=== PATIENT | male | born 1970 | race Caucasian/White ===

== ENCOUNTER 2018-07-17 19:47 | Inpatient (IN) | payer SELFPAY ==
[~2018-07-17] VITALS: Ht 185.4 cm; Wt 99.3 kg
[2018-07-17 19:55] VITALS: BP_SYST 159
[2018-07-17] MEDS ORDERED: NACL 0.9% 1,000 ML IV ONE (20:01)
[2018-07-17] MEDS ORDERED: NITROGLYCERIN 0.4 MG TAB.SUBL SL ONE (20:15)
[2018-07-17] MEDS ORDERED: MORPHINE 4 MG/ML INJ. SYRINGE IVP ONE (20:15)
[2018-07-17] MEDS ORDERED: ASPIRIN 81 MG TAB.CHEW PO ONE (20:15)
[2018-07-17] MEDS ORDERED: CLOPIDOGREL BISULFATE 75 MG TABLET PO ONE (20:15)
[2018-07-17 20:31] LABS: BASOPHILS # (AUTO) 0.1 K/uL (0.0-0.2); BASOPHILS % (AUTO) 1.1 % (0.0-2.0); EOSINOPHILS # (AUTO) 0.1 K/uL (0.0-0.4); EOSINOPHILS % (AUTO) 0.9 % (0.0-4.0); HEMATOCRIT 49.8 % (36-54); HEMOGLOBIN 16.9 g/dL (14.0-18.0); LYMPHOCYTES # (AUTO) 2.1 K/uL (1.0-5.5); LYMPHOCYTES % (AUTO) 26.6 % (20.5-51.5); MEAN CORPUSCULAR HEMOGLOBIN 31 pg (27-31); MEAN CORPUSCULAR HGB CONC 34 % (32-36); MEAN CORPUSCULAR VOLUME 92 fL (79.0-98.0); MONOCYTES # (AUTO) 1.1 K/uL (0.0-1.0); MONOCYTES % (AUTO) 13.5 % (1.7-9.3); NEUTROPHILS # (AUTO) 4.4 K/uL (1.8-7.7); NEUTROPHILS % (AUTO) 57.9 % (40.0-70.0); PLATELET COUNT (AUTO) 83 K/uL (130-430); RED CELL DISTRIBUTION WIDTH 12.1 % (9.0-15.0); WHITE BLOOD COUNT (AUTO) 7.8 K/uL (4.8-10.8)
[2018-07-17 20:36] LABS: CALCIUM 8.5 mg/dL (8.4-11.0); CREATININE 1.24 mg/dL (0.55-1.30)
[2018-07-17 20:38] LABS: INR 0.9 (0.80-1.20); POTASSIUM 2.9 mmol/L (3.5-5.1); PROTHROMBIN TIME 9.5 SECS (9.5-12.5)
[2018-07-17 20:42] LABS: ALBUMIN 3.7 g/dL (3.4-4.8); TOTAL BILIRUBIN 1.3 mg/dL (0.0-1.0)
[2018-07-17 21:06] LABS: BILIRUBIN,URINE NEGATIVE (NEGATIVE); BLOOD, URINE NEGATIVE (NEGATIVE); CLARITY/URINE CLEAR (CLEAR); COLOR,URINE YELLOW (YELLOW); GLUCOSE,URINE NEGATIVE (NEGATIVE); KETONES,URINE NEGATIVE (NEGATIVE); LEUKOCYTE ESTERASE ,URINE NEGATIVE (NEGATIVE); NITRITE, URINE NEGATIVE (NEGATIVE); PH,URINE 5.5 (5.0-8.0); PROTEIN URINE NEGATIVE (NEGATIVE); UROBILINOGEN,URINE 0.2 (0.2-1.0)
[2018-07-17] MEDS ORDERED: KCL 40 mEq in 100 mL (PREMIX) 100 ML IV ONE (21:15)
[2018-07-17 21:20] LABS: BARBITURATE, URINE NEGATIVE (NEG <=200); BENZODIAZEPINE, URINE NEGATIVE (NEG <=150); CANNABINOID, URINE NEGATIVE (NEG <=50); COCAINE, URINE NEGATIVE (NEG <=150); METHAMPHETAMINES SCREEN,URINE NEGATIVE (NEG <=500); OPIATE, URINE POSITIVE (NEG <=100); PHENCYCLIDINE SCREEN,URINE NEGATIVE (NEG <=25); UR TRICYCLIC ANTIDEPRESSANTS NEGATIVE (NEG <=300); URINE AMPHETAMINE NEGATIVE (NEG <=500); URINE METHADONE NEGATIVE (NEG <=200); URINE OXYCODONE SCREEN NEGATIVE (NEG <=100); URINE PROPOXYPHENE SCREEN NEGATIVE (NEG <=300)
[2018-07-17] MEDS ORDERED: KCL 20 mEq in 100 mL (PREMIX) 200 ML IV ONE (21:24)
[2018-07-17] MEDS ORDERED: KCL 20 mEq in 100 mL (PREMIX) 100 ML IV ONE (21:30)
[2018-07-17] MEDS ORDERED: ATEN50TA PO (22:11)
[2018-07-17] MEDS ORDERED: HYDR12.55 PO (22:11)
[2018-07-17 22:43] VITALS: BP_SYST 148
[2018-07-18 00:18] VITALS: BP_SYST 121
[2018-07-18 08:00] VITALS: BP_SYST 175
[2018-07-18] MEDS ORDERED: LORazepam 2 MG/ML VIAL IVP ONE (09:45)
[2018-07-18] MEDS ORDERED: chlordiazePOXIDE HCL 25 MG CAPSULE PO ONE (10:00)
[2018-07-18] MEDS ORDERED: THIAMINE HCL 100 MG TABLET PO ONE (10:00)
[2018-07-18] MEDS ORDERED: LORazepam 2 MG/ML VIAL IM PRN (10:00)
[2018-07-18] MEDS ORDERED: HYDROCHLOROTHIAZIDE 12.5 MG CAPSULE (HCTZ) PO ONE (10:00)
[2018-07-18] MEDS ORDERED: ATENOLOL 50 MG TABLET (TENORMIN) PO ONE (10:00)
[2018-07-18 10:51] LABS: CALCIUM 8.1 mg/dL (8.4-11.0); CREATININE 0.94 mg/dL (0.55-1.30); POTASSIUM 3.1 mmol/L (3.5-5.1)
[2018-07-18] MEDS ORDERED: POTASSIUM CHLORIDE 20 MEQ TAB.PRT.SR PO ONE (13:45)
[2018-07-18 14:04] VITALS: BP_SYST 163
[2018-07-18] MEDS ORDERED: amLODIPine BESYLATE 5 MG TABLET ONE (14:23)
[2018-07-18] MEDS ORDERED: amLODIPine BESYLATE 5 MG TABLET PO ONE (14:30)
[2018-07-18] MEDS ORDERED: chlordiazePOXIDE HCL 25 MG CAPSULE PO SCH (15:00)
[2018-07-18] MEDS ORDERED: ATENOLOL 50 MG TABLET (TENORMIN) PO SCH (21:00)
[2018-07-19] MEDS ORDERED: HYDROCHLOROTHIAZIDE 12.5 MG CAPSULE (HCTZ) PO SCH (09:00)
[2018-07-19] MEDS ORDERED: THIAMINE HCL 100 MG TABLET PO SCH (09:00)
[2018-07-19] MEDS ORDERED: amLODIPine BESYLATE 5 MG TABLET PO SCH (09:00)
== END 2018-07-18 14:50 | disposition home or self-care (01) | DRG 313 ==
LOC: SED 19:47 → STU 22:24
PROVIDERS: ADMIT Internal Medicine Hospice and Palliative Medicine; ATTEND Internal Medicine Hospice and Palliative Medicine
DX: R07.89 Other chest pain (principal); K70.30 Alcoholic cirrhosis of liver without ascites; D69.6 Thrombocytopenia, unspecified; E87.5 Hyperkalemia; I10 Essential (primary) hypertension; F10.10 Alcohol abuse, uncomplicated; Z79.899 Other long term (current) drug therapy
CPT/HCPCS: 36415; 71045; 80048; 80053; 80307; 81003; 82150-TC; 82550-TC; 83690-TC; 84484; 85025; 85610-TC; 85730-TC; 93005; 96361; 96365; 96368; 96375; 99285; J2060; J2270; J3480; J7030

== ENCOUNTER 2022-11-08 01:01 | Inpatient (IN) | payer OTHER ==
[~2022-11-08] VITALS: Ht 190.5 cm; Wt 113.9 kg
[~2022-11-08 01:01] MED LIST: ACAM333T9 PO; AMLO5TAB4 PO; ARIP5TAB10 PO; ATEN50TA PO; BUPR-120 PO; GABA-529 PO; HCT25 PO; LIB25 PO; TRAZ-251 PO
[2022-11-08 01:13] VITALS: BP_SYST 97
--- NOTE | 2022-11-08 01:13 | NUR ---
Patient placed in ER bed 4.
--- NOTE | 2022-11-08 01:26 | NUR ---
Dr. Purdy at bedside examining the patient.
--- NOTE | 2022-11-08 01:30 | NUR ---
Titrated O2 down to 9LPM as ordered by Dr. Purdy.
[2022-11-08 02:31] LABS: CALCIUM 8.2 mg/dL (8.4-11.0); CREATININE 1.01 mg/dL (0.55-1.30)
[2022-11-08 02:32] LABS: BASOPHILS % (AUTO) 0.3 % (0.0-2.0); EOSINOPHILS # (AUTO) 0.1 K/uL (0.0-0.4); EOSINOPHILS % (AUTO) 1.1 % (0.0-4.0); HEMATOCRIT 42.7 % (36-54); HEMOGLOBIN 14.9 g/dL (14.0-18.0); LYMPHOCYTES # (AUTO) 2.3 K/uL (1.0-5.5); LYMPHOCYTES % (AUTO) 24.6 % (20.5-51.5); MEAN CORPUSCULAR HEMOGLOBIN 32 pg (27-31); MEAN CORPUSCULAR HGB CONC 35 % (32-36); MEAN CORPUSCULAR VOLUME 92 fL (79.0-98.0); MONOCYTES # (AUTO) 0.8 K/uL (0.0-1.0); MONOCYTES % (AUTO) 8.9 % (1.7-9.3); NEUTROPHILS # (AUTO) 6.1 K/uL (1.8-7.7); NEUTROPHILS % (AUTO) 65.1 % (40.0-70.0); PLATELET COUNT (AUTO) 178 K/uL (130-430); RED BLOOD CELL COUNT(AUTO) 4.62 MIL/uL (4.2-6.2); RED CELL DISTRIBUTION WIDTH 16.4 % (9.0-15.0); WHITE BLOOD COUNT (AUTO) 9.3 K/uL (4.8-10.8)
[2022-11-08 02:33] LABS: INR 1.4 (0.80-1.20)
--- NOTE | 2022-11-08 02:46 | NUR ---
Critical lab reported: Potassium 2.1 Reported to MD Purdy
[2022-11-08 02:47] LABS: ALBUMIN 1.9 g/dL (3.4-4.8)
[2022-11-08 02:50] LABS: TOTAL BILIRUBIN 35.5 mg/dL (0.0-1.0)
[2022-11-08] MEDS ORDERED: POTASSIUM CHLORIDE 20 MEQ TAB.PRT.SR PO ONE (03:00)
[2022-11-08] MEDS ORDERED: KCL 20 mEq in 100 mL (PREMIX) 100 ML IV ONE (03:00)
--- NOTE | 2022-11-08 06:09 | NUR ---
Admit bed requested Patient will be admitted to care of . Admitted to MED SURG unit. Diagnosis : LIVER FAILURE, ETOH CIRRHOSIS, ELEVATED BILIRUBIN Inpatient (Yes or No) Y Observation (Yes or No) N Orientation concerns or request close to nursing station (Yes or No) N Covid Status : PENDING From Home (Yes or if No enter name of facility) Y
[2022-11-08] MEDS ORDERED: FOLIC ACID 1 MG, THIAMINE HCL 100 MG, MAGNESIUM SULFATE 1 GM, MVI 10 ML in NACL 0.9% 1,... IV SCH (06:15)
--- NOTE | 2022-11-08 10:52 | NUR ---
CONSULTATION PAGED7 REASON FOR CONSULTATION:HYPERBILIRUBINEMIA WAS CONSULT CALLED?Y PERSON WHO WAS NOTIFIED:RANJIT CONSULTING PHYSICIAN:ERNESTO MAGAÑA ([employer] HOME AGENT) CUSTOMER SERVICE CONSULTANT SPECIALTY:GI CUSTOMER SERVICE CONSULTANT PHONE NUMBER:[phone] REQUESTING PHYSICIAN:SILVIO JULIAN
[2022-11-08] MEDS ORDERED: FOLIC ACID 1 MG, MVI 10 ML in NACL 0.9% 1,000 ML IV SCH (11:00)
[2022-11-08] MEDS ORDERED: prednisoLONE 15 MG/5 ML UDC PO ONE (11:00)
[2022-11-08 12:07] VITALS: BP_SYST 101
[2022-11-08 12:34] LABS: CALCIUM 8.5 mg/dL (8.4-11.0); CREATININE 1.12 mg/dL (0.55-1.30)
[2022-11-08] MEDS: FOLIC ACID 1 MG, MVI 10 ML in NACL 0.9% 1,000 ML IV SCH (13:49)
[2022-11-08] MEDS: THIAMINE HCL 100 MG, MAGNESIUM SULFATE 1 GM in NS 100 ML IV SCH (13:51)
[2022-11-08] MEDS ORDERED: POTASSIUM CHLORIDE 40 MEQ in NS 250 ML IV ONE (15:00)
[2022-11-08 16:24] VITALS: BP_SYST 112
--- NOTE | 2022-11-08 19:30 | NUR ---
PT IS RESTING, WITH NASAL CANULA 2 L, SATING ON 98 PERCENT. URINE BAG ATTACHED WITH YELLOW COLOR URINE. PT ABD IS DISTENDED. PT ABLE TO SPEAK AND FOLLOW THE COMMAND.
--- NOTE | 2022-11-08 19:35 | NUR ---
PT RIGHT AC IV LINE IS DISLODGED AND ATTEMPT TO FLUSH BUT UNSUCCESSFUL. PT IS TOLERATED.
[2022-11-08 20:00] VITALS: BP_SYST 103
--- NOTE | 2022-11-08 20:30 | NUR ---
THE NEW IV WAS INSERTED ON THE LEFT AC 18 GAUGE. PT TOLERATED WELL. BED LOWERED
--- NOTE | 2022-11-08 21:00 | NUR ---
PT NEEDED SOME CARE SINCE HE URINATED. EAR FLAP BINDER CLEANED THE PT. THE URINE BAG FELL AND HAS BEEN REATTACHED.
[2022-11-08] MEDS: KCL 20 mEq in D5/0.45NS 1000mL 1,000 ML IV SCH (22:06)
--- NOTE | 2022-11-08 23:50 | NUR ---
PT IS TRYING TO GET OFF THE BED. RESET THE ALARM.
[2022-11-09] VITALS: BP_SYST 97
--- NOTE | 2022-11-09 03:55 | NUR ---
pt removed his nasal canula 2 L. Nurse reattached the nasal canula back.
--- NOTE | 2022-11-09 04:00 | NUR ---
pt is awake and asking for his cellphone. I reminded him it is 4 am. pt is needed to get to bathroom, reminded him that he is a fall risk. bed alarm set. Pt is getting cleaned and tolerated well
[2022-11-09 06:34] LABS: BASOPHILS # (AUTO) 0.3 K/uL (0.0-0.2); EOSINOPHILS % (AUTO) 0.3 % (0.0-4.0); HEMATOCRIT 41.7 % (36-54); HEMOGLOBIN 14.6 g/dL (14.0-18.0); LYMPHOCYTES # (AUTO) 1.3 K/uL (1.0-5.5); LYMPHOCYTES % (AUTO) 13.8 % (20.5-51.5); MEAN CORPUSCULAR HEMOGLOBIN 33 pg (27-31); MEAN CORPUSCULAR HGB CONC 35 % (32-36); MEAN CORPUSCULAR VOLUME 94 fL (79.0-98.0); MONOCYTES # (AUTO) 0.7 K/uL (0.0-1.0); MONOCYTES % (AUTO) 7.2 % (1.7-9.3); NEUTROPHILS # (AUTO) 7.3 K/uL (1.8-7.7); NEUTROPHILS % (AUTO) 75.7 % (40.0-70.0); PLATELET COUNT (AUTO) 164 K/uL (130-430); RED BLOOD CELL COUNT(AUTO) 4.43 MIL/uL (4.2-6.2); RED CELL DISTRIBUTION WIDTH 16.4 % (9.0-15.0); WHITE BLOOD COUNT (AUTO) 9.6 K/uL (4.8-10.8)
[2022-11-09 06:56] LABS: INR 1.4 (0.80-1.20)
[2022-11-09 08:00] VITALS: BP_SYST 117
[2022-11-09] MEDS: prednisoLONE 15 MG/5 ML UDC PO SCH (08:45)
[2022-11-09 09:05] LABS: ALBUMIN 1.8 g/dL (3.4-4.8); CALCIUM 8.2 mg/dL (8.4-11.0); CREATININE 0.98 mg/dL (0.55-1.30)
--- NOTE | 2022-11-09 09:26 | NUR ---
Shift Summary: patient is AAOX2. vitals are stable. patient updated on plan of care for shift. patient educated on importance of using call light if patient needs to ambulate for any reason due to patient being high risk for falls. patient requiring multiple education and redirection. will continue to monitor patient. call light within reach, bed set to low, locked, and alarm on. Addendum: 11/09/22 at 1042 by Tonya Castellanos RN RN Critical potassium value reported. 2.[address] Smith informed and aware. orders placed or Dr. Smith. Addendum: 11/09/22 at 1656 by Tonya Castellanos RN RN and mother bedside. updated on plan of care for shift. patient and family re-educated regarding patient needing to stay in bed and to use call light if patient needs any assistance due to patient being high risk for falls. patient and family aware and understands. will continue to monitor. call light within reach, bed set to low, locked, and alarm on.
[2022-11-09] MEDS ORDERED: LACTULOSE 20 GM/30 ML UDC PO ONE (10:00)
[2022-11-09] MEDS ORDERED: POTASSIUM CHLORIDE 20 MEQ/PKT PACKET PO ONE (10:45)
[2022-11-09 10:59] LABS: TOTAL BILIRUBIN 34.2 mg/dL (0.0-1.0)
[2022-11-09] MEDS ORDERED: KCL 20 mEq in 100 mL (PREMIX) 100 ML IV ONE (11:00)
[2022-11-09 11:35] VITALS: BP_SYST 97
[2022-11-09] MEDS: KCL 20 mEq in D5/0.45NS 1000mL 1,000 ML IV SCH (12:12)
--- NOTE | 2022-11-09 12:53 | NUR ---
Pumping Station Engineer re: social media designer referral Attempted to meet with patient today to discuss his recent return back [facility]. The patient presented as confused and disoriented. I was not able to get any pertinent information as he was mumbling and not speaking in sentences. I spoke with RN Tony to discuss the referral and he advised I speak with the to discuss interventions and plans the family would like to take regarding the patient's emt intermediate plan. I called and spoke with the , Jeni, who indicated she was on her way to the hospital and will speak to me when she arrives. At this time, awaiting to speak with the to discuss LTC plans for the patient.
[2022-11-09] MEDS: FOLIC ACID 1 MG, MVI 10 ML in NACL 0.9% 1,000 ML IV SCH (14:04)
[2022-11-09] MEDS: THIAMINE HCL 100 MG, MAGNESIUM SULFATE 1 GM in NS 100 ML IV SCH (14:05)
[2022-11-09 15:35] VITALS: BP_SYST 120
--- NOTE | 2022-11-09 19:15 | NUR ---
OPENING NOTE REPORT RECEIVED FROM DAYSHIFT NURSE. PATIENT RECEIVED LYING IN BED, RESTING. NO S/S OF ACUTE DISTRESS. BREATHING EVEN AND UNLABORED. HOB RAISED. IVF INFUSING WELL, IV SITE PATENT, NO SIGNS OF INFILTRATION OR INFECTION NOTED. CALL LIGHT WITH PATIENT. BED ALARM ON. BED IS LOCKED AND AT LOWEST POSITION. WILL CONTINUE TO MONITOR.
[2022-11-09 20:00] VITALS: BP_SYST 118
[2022-11-09] MEDS: LORazepam 2 MG/ML VIAL IVP PRN (20:23)
--- NOTE | 2022-11-09 23:00 | NUR ---
REMOVED IV/INSERTED IV PATIENT REMOVED IV. NO ACTIVE BLEEDING NOTED. CATHETER FULLY INTACT. NEW IV INSERTED RIGHT FOREARM, 20G. IVF INFUSING. WILL MONITOR. ALL NEEDS MET.
[2022-11-10] VITALS: BP_SYST 115
--- NOTE | 2022-11-10 03:10 | NUR ---
ROUNDS PATIENT IN BED, SLEEPING COMFORTABLY. NO SIGNS OF DISCOMFORT. ALL NEEDS MET. WILL MONITOR.
[2022-11-10] MEDS: KCL 20 mEq in D5/0.45NS 1000mL 1,000 ML IV SCH (03:33)
--- NOTE | 2022-11-10 03:37 | NUR ---
TRANSFER OF CARE REPORT GIVEN TO JACLYN THURSTON. PATIENT IN BED, RESTING, NO S/S OF ACUTE DISTRESS. BREATHING EVEN AND UNLABORED. HOB RAISED. IVF INFUSING WELL, IV SITE PATENT, NO SIGNS OF INFILTRATION OR INFECTION NOTED. CALL LIGHT WITH PATIENT. BED ALARM ON. BED IS LOCKED AND AT LOWEST POSITION. ALL NEEDS MET.
[2022-11-10 07:00] VITALS: BP_SYST 109
--- NOTE | 2022-11-10 07:21 | NUR ---
receive the patient from the mini shifter rn in rm 130A aox2 with admitting diagnosis of liver cirrhosis . hypokalemia . being treated with thiamine , potassium chloride . will continue to monitor
[2022-11-10 08:00] VITALS: BP_SYST 109
[2022-11-10] MEDS: LACTULOSE 20 GM/30 ML UDC PO SCH (09:19)
[2022-11-10] MEDS: prednisoLONE 15 MG/5 ML UDC PO SCH (09:20)
[2022-11-10 10:47] LABS: HEMATOCRIT 43.1 % (36-54); HEMOGLOBIN 14.9 g/dL (14.0-18.0); MEAN CORPUSCULAR HEMOGLOBIN 32 pg (27-31); MEAN CORPUSCULAR HGB CONC 35 % (32-36); MEAN CORPUSCULAR VOLUME 93 fL (79.0-98.0); PLATELET COUNT (AUTO) 184 K/uL (130-430); RED BLOOD CELL COUNT(AUTO) 4.62 MIL/uL (4.2-6.2); RED CELL DISTRIBUTION WIDTH 16.2 % (9.0-15.0); WHITE BLOOD COUNT (AUTO) 10.3 K/uL (4.8-10.8)
[2022-11-10 11:12] LABS: INR 1.3 (0.80-1.20); PROTHROMBIN TIME 13.3 SECS (9.5-12.5)
[2022-11-10 11:26] LABS: ALBUMIN 1.8 g/dL (3.4-4.8); CREATININE 1.08 mg/dL (0.55-1.30)
[2022-11-10 12:10] VITALS: BP_SYST 118
[2022-11-10] MEDS ORDERED: POTASSIUM CHLORIDE 40 MEQ in NS 250 ML IV SCH (14:15)
[2022-11-10 14:19] LABS: ATYPICAL LYMPHOCYTES % 5 % (0-0); BASOPHILS % (MANUAL) 0 % (0-2); EOSINOPHILS % (MANUAL) 2 % (0-7); LYMPHOCYTES % (MANUAL) 15 % (20-46); MONOCYTES % (MANUAL) 6 % (0-11)
[2022-11-10] MEDS: FOLIC ACID 1 MG, MVI 10 ML in NACL 0.9% 1,000 ML IV SCH (14:19)
[2022-11-10] MEDS: THIAMINE HCL 100 MG, MAGNESIUM SULFATE 1 GM in NS 100 ML IV SCH (14:20)
[2022-11-10] MEDS ORDERED: POTASSIUM CHLORIDE 20 MEQ/PKT PACKET PO ONE (14:30)
--- NOTE | 2022-11-10 15:25 | NUR ---
change to regular diet from liquid diet
[2022-11-10] MEDS ORDERED: POTASSIUM CHLORIDE 80 MEQ in NS 500 ML IV ONE (15:30)
--- NOTE | 2022-11-10 15:55 | NUR ---
md curry ordered swallow evaluation as per family request
[2022-11-10 16:00] VITALS: BP_SYST 119
--- NOTE | 2022-11-10 17:05 | NUR ---
swallow evaluation was done by the speech therapist
--- NOTE | 2022-11-10 17:48 | NUR ---
ST EVALUATION COMPLETED. ST TX NOT INDICATED AT THIS TIME. RECOMMEND PO DIET OF REGULAR TEXTURE/THIN LIQUIDS. DISTANT SUPERVISION AND FULL ASPIRATION PRECAUTIONS
--- NOTE | 2022-11-10 18:06 | NUR ---
Dietitian Recommendations * Continue 2gm Na diet. * Consider swallow evaluation. LP, MS, RD Please refer to Nutrition Assessment for details.
--- NOTE | 2022-11-10 18:23 | NUR ---
will endorse to shift superintendent caustic cresylate rn for continuity of care . still for thiamine and potassium replacement
--- NOTE | 2022-11-10 19:15 | NUR ---
CHANGED OF SHIFT; endorsed by day shift nurse Jose, pt. confused, moving all extremities. IV out. on safety precaution, bed alarm on. call light within reach.
[2022-11-10 20:00] VITALS: BP_SYST 118
--- NOTE | 2022-11-10 20:15 | NUR ---
NOTES: checked pt., naked and trying to get out of bed. pt. incontinent of urine and bowel. repositioned, will ask AUTOMOTIVE GLASS MECHANIC to clean him. pt. jaundiced.
--- NOTE | 2022-11-10 21:00 | NUR ---
NOTES: complete hs care done by STRAINER CLEANER. condition guarded.
--- NOTE | 2022-11-10 22:00 | NUR ---
NOTES: started another IV site on rt. wrist area with some difficulty and resume IVF
[2022-11-11 00:33] VITALS: BP_SYST 142
[2022-11-11] MEDS: KCL 20 mEq in D5/0.45NS 1000mL 1,000 ML IV SCH ×2 (00:40→17:48)
--- NOTE | 2022-11-11 02:15 | NUR ---
NOTES: pt. woke up and getting restless and trying to get out bed. repositioned. incontinent of urine and changed by FOUNTAIN ROLLER ASSEMBLER> IVF infusing. bed alarm on.
--- NOTE | 2022-11-11 04:15 | NUR ---
NOTES: condition unchanged and observed. no distress.
--- NOTE | 2022-11-11 05:09 | NUR ---
NOTES: pt. set the bed alarm, trying to get out of bed and wants to go home. more awake. pt. reoriented. IV site rewrapped again.
--- NOTE | 2022-11-11 05:30 | NUR ---
NOTES: complete am care done and linen changed. pt. incontinent of urine. skin on bilateral groin and under the scrotum is red and coccyx are, Z israel cream apllied after milton care with VICE PRESIDENT OF INSTRUCTION> pt. able to turn when asked to do so. needs attended. reminded pt. to stay in bed. bed alarm on.
--- NOTE | 2022-11-11 06:50 | NUR ---
CLOSING NOTES; pt. more calm and went back to sleep. main IV infusing with KCL @ 60 cc/hr. for further care and observation. will endorse to incoming shift. bed alarm on.
--- NOTE | 2022-11-11 07:25 | NUR ---
receive the patinet from the web consultant rn oax2 with episode of confusion . admitting diagnosis of liver cirrhosis . will continue to monitor
[2022-11-11 07:42] LABS: HEMATOCRIT 42.4 % (36-54); HEMOGLOBIN 14.8 g/dL (14.0-18.0); MEAN CORPUSCULAR HEMOGLOBIN 33 pg (27-31); MEAN CORPUSCULAR HGB CONC 35 % (32-36); MEAN CORPUSCULAR VOLUME 93 fL (79.0-98.0); PLATELET COUNT (AUTO) 191 K/uL (130-430); RED BLOOD CELL COUNT(AUTO) 4.56 MIL/uL (4.2-6.2); RED CELL DISTRIBUTION WIDTH 15.9 % (9.0-15.0); WHITE BLOOD COUNT (AUTO) 12.1 K/uL (4.8-10.8)
[2022-11-11 07:54] LABS: INR 1.2 (0.80-1.20); PROTHROMBIN TIME 12.5 SECS (9.5-12.5)
[2022-11-11 08:22] LABS: CALCIUM 8.2 mg/dL (8.4-11.0); CREATININE 1.06 mg/dL (0.55-1.30)
[2022-11-11 09:05] LABS: TOTAL BILIRUBIN 33.5 mg/dL (0.0-1.0)
[2022-11-11] MEDS: LACTULOSE 20 GM/30 ML UDC PO SCH (09:36)
[2022-11-11] MEDS: prednisoLONE 15 MG/5 ML UDC PO SCH (10:53)
[2022-11-11 13:40] VITALS: BP_SYST 110
[2022-11-11] MEDS: FOLIC ACID 1 MG, MVI 10 ML in NACL 0.9% 1,000 ML IV SCH (13:44)
[2022-11-11] MEDS: THIAMINE HCL 100 MG, MAGNESIUM SULFATE 1 GM in NS 100 ML IV SCH (13:45)
[2022-11-11 14:31] LABS: BASOPHILS % (MANUAL) 0 % (0-2); EOSINOPHILS % (MANUAL) 1 % (0-7); LYMPHOCYTES % (MANUAL) 8 % (20-46); MONOCYTES % (MANUAL) 12 % (0-11)
[2022-11-11 17:25] VITALS: BP_SYST 123
--- NOTE | 2022-11-11 18:57 | NUR ---
still for thiamine for alcohol abuse . will endorse to night monitor rn for continuity of care
[2022-11-11 20:24] VITALS: BP_SYST 124
[2022-11-11] MEDS: LORazepam 2 MG/ML VIAL IVP PRN (21:06)
[2022-11-12 01:29] VITALS: BP_SYST 117
[2022-11-12] MEDS: LORazepam 2 MG/ML VIAL IVP PRN ×2 (04:20→09:04)
[2022-11-12 04:30] VITALS: BP_SYST 126
[2022-11-12] MEDS ORDERED: FOLI-43 PO (05:35)
[2022-11-12] MEDS ORDERED: THIA100T70 PO (05:35)
[2022-11-12] MEDS ORDERED: Lactulose PO (05:35)
[2022-11-12] MEDS ORDERED: PRED20TA PO (05:35)
[2022-11-12] MEDS ORDERED: MULT-1117 PO (05:35)
--- NOTE | 2022-11-12 07:22 | NUR ---
OPENING NOTE; PT RESTING IN BED, BREATHING EVEN AND NON-LABORED. NO S/S OF ANY PAIN OR DISCOMFORT. BED IS LOCKED AND AT LOW POSITION. CALL LIGHT WITHIN REACH. BED ALARM ON. ENCOURAGED TO USE CALL LIGHT FOR ASSISTANCE. WILL CONT TO MONITOR
[2022-11-12 08:00] VITALS: BP_SYST 132
[2022-11-12] MEDS: prednisoLONE 15 MG/5 ML UDC PO SCH (08:41)
[2022-11-12] MEDS: LACTULOSE 20 GM/30 ML UDC PO SCH (08:41)
[2022-11-12 09:17] LABS: HEMOGLOBIN 14.7 g/dL (14.0-18.0); MEAN CORPUSCULAR HEMOGLOBIN 32 pg (27-31); MEAN CORPUSCULAR HGB CONC 33 % (32-36); MEAN CORPUSCULAR VOLUME 94 fL (79.0-98.0); PLATELET COUNT (AUTO) 189 K/uL (130-430); RED BLOOD CELL COUNT(AUTO) 4.67 MIL/uL (4.2-6.2); RED CELL DISTRIBUTION WIDTH 16.4 % (9.0-15.0); WHITE BLOOD COUNT (AUTO) 9.9 K/uL (4.8-10.8)
[2022-11-12] MEDS: KCL 20 mEq in D5/0.45NS 1000mL 1,000 ML IV SCH (10:53)
--- NOTE | 2022-11-12 11:15 | NUR ---
SPOKE WITH René STRONG RECEIVED NEW ORDERS
[2022-11-12 11:35] VITALS: BP_SYST 122
--- NOTE | 2022-11-12 11:50 | NUR ---
NOTES; CODE GARCIA WITH PT'S SISTER, SERGIO. CHARGE NURSE, RESOURCE NURSE, OTHER STAFFS AND SECURITY PRESENT.
--- NOTE | 2022-11-12 12:15 | NUR ---
NOTES; PT DENIES PAIN OR DISCOMFORT.STRESSED ABOUT HIS SISTER, WHAT HAPPENED EARLIER. SISTER WAS YELLING TO PT.
--- NOTE | 2022-11-12 12:19 | NUR ---
PT STATES THAT HE NEEDS TO THINK ABOUT PICC LINE. EXP RISKS AND BENEFITS X3. PT VERBALIZED UNDERSTANDING.
[2022-11-12 12:36] LABS: INR 1.3 (0.80-1.20); PROTHROMBIN TIME 13.3 SECS (9.5-12.5)
[2022-11-12 14:14] LABS: ALBUMIN 2.1 g/dL (3.4-4.8); CALCIUM 8.4 mg/dL (8.4-11.0); CREATININE 1.08 mg/dL (0.55-1.30)
[2022-11-12] MEDS: FOLIC ACID 1 MG, MVI 10 ML in NACL 0.9% 1,000 ML IV SCH (14:28)
[2022-11-12] MEDS: THIAMINE HCL 100 MG, MAGNESIUM SULFATE 1 GM in NS 100 ML IV SCH (14:28)
[2022-11-12 14:37] LABS: BASOPHILS % (MANUAL) 0 % (0-2); EOSINOPHILS % (MANUAL) 2 % (0-7); LYMPHOCYTES % (MANUAL) 13 % (20-46); MONOCYTES % (MANUAL) 5 % (0-11)
--- NOTE | 2022-11-12 14:49 | NUR ---
AT BEDSIDE, SIGNED PICC LINE CONSENT FORM
[2022-11-12 15:58] LABS: TOTAL BILIRUBIN 34.5 mg/dL (0.0-1.0)
[2022-11-12 16:59] VITALS: BP_SYST 126
--- NOTE | 2022-11-12 17:15 | NUR ---
PT GOT PICC LINE TO NIYAH. PT TOLERATED WELL. PICC LINE PATENT AND INTACT. NO IV INFILTRATION OR INFECTION NOTED. DC'ED PREVIOUS PIV. NO ACTIVE BLEEDING NOTED. WILL CONT TO MONITOR
--- NOTE | 2022-11-12 18:48 | NUR ---
CLOSING NOTES; PT RESTING IN BED, NON-LABORED AND REGULAR BREATHING. IVF RUNNING ORDERED VIA PICC LINE. IV SITE REMAIN INTACT AND PATENT. BED IS LOCKED AND AT LOW POSITION. BED ALARM ON. SAFETY PRECAUTION IN PLACE. ENCOURAGED TO USE CALL LIGHT FOR ASSISTANCE. WILL ENDORSE CARE TO STAPLE PROCESSING MACHINE OPERATOR NURSE.
--- NOTE | 2022-11-12 19:57 | NUR ---
PT IN BED, AOX2, CONFUSED AND LETHARGIC, BED ALARM TURNED ON, EVEN AND UNLABORED BREATHING, IV ACCESS PATENT AND FLUSHING, CALL LIGHT WITHIN REACH, WILL CONTINUE WITH PLAN OF CARE
[2022-11-12 20:08] VITALS: BP_SYST 126
[2022-11-13 01:34] VITALS: BP_SYST 121
[2022-11-13] MEDS: KCL 20 mEq in D5/0.45NS 1000mL 1,000 ML IV SCH ×2 (03:09→19:20)
[2022-11-13 06:38] LABS: HEMATOCRIT 38.9 % (36-54); HEMOGLOBIN 13.5 g/dL (14.0-18.0); MEAN CORPUSCULAR HEMOGLOBIN 33 pg (27-31); MEAN CORPUSCULAR HGB CONC 35 % (32-36); MEAN CORPUSCULAR VOLUME 94 fL (79.0-98.0); PLATELET COUNT (AUTO) 157 K/uL (130-430); RED BLOOD CELL COUNT(AUTO) 4.14 MIL/uL (4.2-6.2); WHITE BLOOD COUNT (AUTO) 10.1 K/uL (4.8-10.8)
--- NOTE | 2022-11-13 07:13 | NUR ---
PT IN BED, AOX2, CONFUSED AND LETHARGIC, TRIED GETTING OUT OF BED A COUPLE OF TIMES DURING SHIFT BUT WAS CONTROLLED, NO FALL, BED ALARM TURNED ON, EVEN AND UNLABORED BREATHING, IV ACCESS PATENT AND FLUSHING, INFUSING D5 1/2NS + 20MEQ AT 60CC, BANANA BAG FINISHED DURING SHIFT, NO C/O SOB, CP OR ANY PAIN DURING SHIFT, SAFETY PREC MAINTAINED, CALL LIGHT WITHIN REACH, WILL BE ENDORSED TO AM RN
--- NOTE | 2022-11-13 07:20 | NUR ---
OPENING NOTE; PT SLEEPING IN BED, BREATHING NON-LABORED AND EVEN ON ROOM AIR. PICC LINE REMAIN INTACT AND PATENT. NO IV INFILTRATION OR INFECTION NOTED. BED IS LOCKED AND AT LOW POSITION. BED ALARM ON. CALL LIGHT WITHIN REACH. SAFETY PRECAUTION IN PLACE.WILL CONT TO MONITOR.
[2022-11-13 07:24] LABS: ALBUMIN 1.7 g/dL (3.4-4.8); CALCIUM 7.8 mg/dL (8.4-11.0); CREATININE 0.86 mg/dL (0.55-1.30)
[2022-11-13 08:34] LABS: TOTAL BILIRUBIN 28.5 mg/dL (0.0-1.0)
--- NOTE | 2022-11-13 08:45 | NUR ---
CRITICAL LAB FOR BRET: , PAGED
[2022-11-13] MEDS: LACTULOSE 20 GM/30 ML UDC PO SCH (09:39)
[2022-11-13] MEDS: prednisoLONE 15 MG/5 ML UDC PO SCH (09:40)
--- NOTE | 2022-11-13 10:00 | NUR ---
NOTES; PT'S MOTHER AT BEDSIDE, ANSWERED ALL QUESTIONS.
[2022-11-13 10:16] VITALS: BP_SYST 111
[2022-11-13 11:07] LABS: BASOPHILS % (MANUAL) 0 % (0-2); EOSINOPHILS % (MANUAL) 1 % (0-7); LYMPHOCYTES % (MANUAL) 10 % (20-46); MONOCYTES % (MANUAL) 11 % (0-11)
[2022-11-13 11:35] VITALS: BP_SYST 119
--- NOTE | 2022-11-13 13:00 | NUR ---
NOTES; PT HAD BM AND VOIDED. GOOD ZAHIDA CARE PROVIDED. PT TOLERATED WELL
[2022-11-13] MEDS: THIAMINE HCL 100 MG, MAGNESIUM SULFATE 1 GM in NS 100 ML IV SCH (13:24)
[2022-11-13] MEDS: FOLIC ACID 1 MG, MVI 10 ML in NACL 0.9% 1,000 ML IV SCH (13:26)
--- NOTE | 2022-11-13 16:53 | NUR ---
NOTES; PROVIDED GOOD ZAHIDA CARE AFTER USING URINAL. PT TOLERATED WELL
[2022-11-13 16:54] VITALS: BP_SYST 124
--- NOTE | 2022-11-13 18:33 | NUR ---
CLOSING NOTE; PT RESTING IN BED, BREATHING NON-LABORED AND EVEN ON ROOM AIR. IVF RUNNING ORDERED VIA NIYAH PICC LINE. PICC LINE REMAIN INTACT AND PATENT. NO IV INFILTRATION OR INFECTION NOTED. BED IS LOCKED AND AT LOW POSITION. BED ALARM ON. CALL LIGHT AND URINAL WITHIN REACH. SAFETY PRECAUTION IN PLACE.WILL ENDORSE CARE TO SUSPENDER MAKER NURSE.
[2022-11-13 19:00] VITALS: BP_SYST 132
--- NOTE | 2022-11-13 19:15 | NUR ---
change of shift.pt.presents quiescent affect;calm,resting.pt.presents picc-line location rt.bicept intact;patent iv fluids/banana-bag infusing.pt.presents loc:confused.general status stable.respiratory status stable;unlabored@room air.call light/telephone w/in access of the pt.
[2022-11-13 20:00] VITALS: BP_SYST 132
--- NOTE | 2022-11-13 20:00 | NUR ---
pt.assessed.v/s assessed values wnl.no c/o pain.nausea.picc line intact iv fluids/banana-bag infusing.pt.assessed for cleanliness pt.repositioned.call light/telephone placed w/in access of the pt.
--- NOTE | 2022-11-13 22:00 | NUR ---
pt.assessed.pt.quiescent.no c/o pain,nausea.picc line intact iv fluids/banana-bag infusing.pt.assessed for cleanliness pt.cleaned/repositioned.call light/telephone placed w/in access of the pt.
--- NOTE | 2022-11-14 | NUR ---
pt.assessed.v/s assessed values wnl.no c/o pain,nausea.no requests posited@this hour.picc-line intact iv fluids/banana-bag infusing.pt.assessed for cleanliness pt.repositioned.call light/telephone placed w/in access of the pt.
--- NOTE | 2022-11-14 02:00 | NUR ---
pt.assessed.02-mon%=96%per flacc pain mgx pt.absent facial grimaces/body posturing.pt.assessed for cleanliness pt.repositioned.picc-line intact iv flujds/banana-bag infusing.call light/telephone placed w/in access of the pt.
--- NOTE | 2022-11-14 04:00 | NUR ---
pt.assessed.pt.quiescent.per flacc pain mgx pt.absent facial grimaces/body posturing.02-sat%=96%.pt.assessed for cleanliness pt.repositioned.picc-line intact iv fluids/banana-bag infusing.call light/telephone placed w/in access of the pt.
--- NOTE | 2022-11-14 06:15 | NUR ---
pt.assessed.pt.quiescent.no c/o pain,nausea.02-sat%=96%.pt.assessed for cleanliness.pt.repositioned.picc line intact; iv fluids/banana-bag infusing.call light/telephone placed w/in access of the pt.
[2022-11-14 06:41] LABS: HEMATOCRIT 39.9 % (36-54); HEMOGLOBIN 13.5 g/dL (14.0-18.0); MEAN CORPUSCULAR HEMOGLOBIN 32 pg (27-31); MEAN CORPUSCULAR HGB CONC 34 % (32-36); MEAN CORPUSCULAR VOLUME 95 fL (79.0-98.0); PLATELET COUNT (AUTO) 145 K/uL (130-430); RED BLOOD CELL COUNT(AUTO) 4.19 MIL/uL (4.2-6.2); RED CELL DISTRIBUTION WIDTH 15.3 % (9.0-15.0); WHITE BLOOD COUNT (AUTO) 9.6 K/uL (4.8-10.8)
[2022-11-14] MEDS: KCL 20 mEq in D5/0.45NS 1000mL 1,000 ML IV SCH (06:52)
[2022-11-14 07:28] LABS: ALBUMIN 1.7 g/dL (3.4-4.8); CALCIUM 7.6 mg/dL (8.4-11.0); CREATININE 0.99 mg/dL (0.55-1.30)
[2022-11-14 08:00] VITALS: BP_SYST 126
[2022-11-14 08:40] LABS: TOTAL BILIRUBIN 26.2 mg/dL (0.0-1.0)
--- NOTE | 2022-11-14 08:46 | NUR ---
CRITICAL LAB RESULT RECEIVED FROM LAB FOR BILIRUBIN 26.2, LAB IS TRENDING DOWN. WILL NOTIFY MD AND CONTINUE TO MONITOR CLOSELY.
[2022-11-14] MEDS: LACTULOSE 20 GM/30 ML UDC PO SCH (09:03)
[2022-11-14] MEDS: prednisoLONE 15 MG/5 ML UDC PO SCH (09:04)
[2022-11-14 11:30] VITALS: BP_SYST 130
[2022-11-14 13:33] LABS: ATYPICAL LYMPHOCYTES % 2 % (0-0); LYMPHOCYTES % (MANUAL) 15 % (20-46); MONOCYTES % (MANUAL) 10 % (0-11)
[2022-11-14 13:34] LABS: BASOPHILS % (MANUAL) 0 % (0-2); EOSINOPHILS % (MANUAL) 1 % (0-7)
[2022-11-14] MEDS: FOLIC ACID 1 MG, MVI 10 ML in NACL 0.9% 1,000 ML IV SCH (14:09)
[2022-11-14] MEDS: THIAMINE HCL 100 MG, MAGNESIUM SULFATE 1 GM in NS 100 ML IV SCH (14:10)
[2022-11-14] MEDS ORDERED: POTASSIUM CHLORIDE 20 MEQ TAB.PRT.SR PO ONE (14:30)
[2022-11-14 15:25] VITALS: BP_SYST 125
[2022-11-14 20:00] VITALS: BP_SYST 129
[2022-11-15 00:18] VITALS: BP_SYST 129
[2022-11-15 04:00] VITALS: BP_SYST 130
[2022-11-15] MEDS: KCL 20 mEq in D5/0.45NS 1000mL 1,000 ML IV SCH ×2 (04:21→21:20)
[2022-11-15 06:53] LABS: HEMATOCRIT 41.5 % (36-54); MEAN CORPUSCULAR HEMOGLOBIN 32 pg (27-31); MEAN CORPUSCULAR HGB CONC 34 % (32-36); MEAN CORPUSCULAR VOLUME 95 fL (79.0-98.0); PLATELET COUNT (AUTO) 167 K/uL (130-430); RED BLOOD CELL COUNT(AUTO) 4.39 MIL/uL (4.2-6.2); RED CELL DISTRIBUTION WIDTH 15.9 % (9.0-15.0)
[2022-11-15 08:05] VITALS: BP_SYST 140
[2022-11-15 08:44] LABS: ALBUMIN 1.9 g/dL (3.4-4.8); CALCIUM 7.8 mg/dL (8.4-11.0); CREATININE 0.97 mg/dL (0.55-1.30)
[2022-11-15] MEDS: prednisoLONE 15 MG/5 ML UDC PO SCH (09:05)
[2022-11-15] MEDS: LACTULOSE 20 GM/30 ML UDC PO SCH (09:07)
[2022-11-15 09:50] LABS: TOTAL BILIRUBIN 26.2 mg/dL (0.0-1.0)
--- NOTE | 2022-11-15 09:58 | NUR ---
PHYSICAL THERAPY CO-SIGN The Physical Therapy Progress Notes documented by Core Composer Machine Tender have been reviewed. Reviewed/Co-Signed by: Bhaskar Nicolas Documentation Done by:TIM JIMENEZ Addendum: 11/15/22 at 0958 by Bhaskar Nicolas PT Amended: Links added.
[2022-11-15 11:36] VITALS: BP_SYST 136
[2022-11-15 13:16] LABS: BASOPHILS % (MANUAL) 0 % (0-2); EOSINOPHILS % (MANUAL) 1 % (0-7); LYMPHOCYTES % (MANUAL) 17 % (20-46); MONOCYTES % (MANUAL) 7 % (0-11)
[2022-11-15] MEDS: THIAMINE HCL 100 MG, MAGNESIUM SULFATE 1 GM in NS 100 ML IV SCH (14:02)
[2022-11-15] MEDS: FOLIC ACID 1 MG, MVI 10 ML in NACL 0.9% 1,000 ML IV SCH (14:03)
[2022-11-15 15:43] VITALS: BP_SYST 127
--- NOTE | 2022-11-15 18:27 | NUR ---
Patient had an uneventful day, safety precautions maintained with no incidence. Discharge cancelled for today. Patient needs further PT evaluation and treatment plan. Continue with POC.
[2022-11-15 20:00] VITALS: BP_SYST 137
[2022-11-16] VITALS (7 sets, daily range): BP systolic 126–141
--- NOTE | 2022-11-16 08:09 | NUR ---
PHYSICAL THERAPY CO-SIGN The Physical Therapy Progress Notes documented by Loading Unit Operator have been reviewed. Reviewed/Co-Signed by: Bhaskar Nicolas Documentation Done by:TIM JIMENEZ Addendum: 11/16/22 at 0809 by Bhaskar Nicolas PT Amended: Links added.
[2022-11-16] MEDS: LACTULOSE 20 GM/30 ML UDC PO SCH (08:55)
[2022-11-16] MEDS: prednisoLONE 15 MG/5 ML UDC PO SCH (08:56)
[2022-11-16] MEDS: FOLIC ACID 1 MG, MVI 10 ML in NACL 0.9% 1,000 ML IV SCH (14:26)
[2022-11-16] MEDS: THIAMINE HCL 100 MG, MAGNESIUM SULFATE 1 GM in NS 100 ML IV SCH (14:28)
--- NOTE | 2022-11-16 15:23 | NUR ---
RN MEDICALLY CLEARED PATIENT FOR PM PT TREATMENT, HOWEVER PATIENT REFUSED SECOND TREATMENT HE WAS FEELING TIRED.
--- NOTE | 2022-11-16 15:59 | NUR ---
PHYSICAL THERAPY CO-SIGN The Physical Therapy Progress Notes documented by Potato Loader have been reviewed. Reviewed/Co-Signed by: Israel Johnson Documentation Done by:TIM JIMENEZ Addendum: 11/16/22 at 1559 by Israel Johnson PT Amended: Links added.
--- NOTE | 2022-11-16 18:43 | NUR ---
PATIENT RESTING QUIETLY IN BED, NO COMPLAINTS VOICED, NO APPARENT DISTRESS NOTED. SAFETY PRECAUTION MAINTAINED THIS SHIFT. CONTINUES ON IVF FOR HYDRATION, TOLERATED MEDS AND DIET WELL. CONTINUE WITH POC.
[2022-11-17] VITALS: BP_SYST 116
[2022-11-17 04:00] VITALS: BP_SYST 126
[2022-11-17] MEDS: KCL 20 mEq in D5/0.45NS 1000mL 1,000 ML IV SCH ×2 (05:43→12:19)
[2022-11-17 06:41] LABS: BASOPHILS # (AUTO) 0.1 K/uL (0.0-0.2); BASOPHILS % (AUTO) 0.8 % (0.0-2.0); EOSINOPHILS # (AUTO) 0.1 K/uL (0.0-0.4); EOSINOPHILS % (AUTO) 0.7 % (0.0-4.0); HEMATOCRIT 40.3 % (36-54); HEMOGLOBIN 13.6 g/dL (14.0-18.0); LYMPHOCYTES # (AUTO) 1.5 K/uL (1.0-5.5); LYMPHOCYTES % (AUTO) 12.6 % (20.5-51.5); MEAN CORPUSCULAR HEMOGLOBIN 32 pg (27-31); MEAN CORPUSCULAR HGB CONC 34 % (32-36); MEAN CORPUSCULAR VOLUME 96 fL (79.0-98.0); MONOCYTES # (AUTO) 0.9 K/uL (0.0-1.0); MONOCYTES % (AUTO) 7.6 % (1.7-9.3); NEUTROPHILS # (AUTO) 9.1 K/uL (1.8-7.7); NEUTROPHILS % (AUTO) 78.3 % (40.0-70.0); PLATELET COUNT (AUTO) 146 K/uL (130-430); RED BLOOD CELL COUNT(AUTO) 4.22 MIL/uL (4.2-6.2); RED CELL DISTRIBUTION WIDTH 15.5 % (9.0-15.0); WHITE BLOOD COUNT (AUTO) 11.6 K/uL (4.8-10.8)
[2022-11-17 06:57] LABS: CALCIUM 7.7 mg/dL (8.4-11.0); CREATININE 0.97 mg/dL (0.55-1.30)
[2022-11-17 08:23] VITALS: BP_SYST 146
[2022-11-17 09:00] LABS: TOTAL BILIRUBIN 19.1 mg/dL (0.0-1.0)
[2022-11-17] MEDS: prednisoLONE 15 MG/5 ML UDC PO SCH (09:20)
[2022-11-17] MEDS: LACTULOSE 20 GM/30 ML UDC PO SCH (09:20)
[2022-11-17 11:40] VITALS: BP_SYST 129
[2022-11-17] MEDS: THIAMINE HCL 100 MG, MAGNESIUM SULFATE 1 GM in NS 100 ML IV SCH (13:13)
[2022-11-17] MEDS: FOLIC ACID 1 MG, MVI 10 ML in NACL 0.9% 1,000 ML IV SCH (13:13)
[2022-11-17 15:45] VITALS: BP_SYST 135
--- NOTE | 2022-11-17 16:03 | NUR ---
PHYSICAL THERAPY CO-SIGN The Physical Therapy Progress Notes documented by Electrocardiograph Technician have been reviewed. Reviewed/Co-Signed by: Bhaskar Nicolas Documentation Done by:TIM JIMENEZ Addendum: 11/17/22 at 1604 by Bhaskar Nicolas PT Amended: Links added.
--- NOTE | 2022-11-17 20:04 | NUR ---
REPORT RECEIVED FROM OUTGOING RN
[2022-11-17 21:07] VITALS: BP_SYST 137
[2022-11-18] VITALS: BP_SYST 135
--- NOTE | 2022-11-18 00:24 | NUR ---
pt resting in bed, no distress noted
[2022-11-18 06:59] LABS: BASOPHILS % (AUTO) 0.1 % (0.0-2.0); EOSINOPHILS # (AUTO) 0.1 K/uL (0.0-0.4); EOSINOPHILS % (AUTO) 0.6 % (0.0-4.0); HEMATOCRIT 37.7 % (36-54); LYMPHOCYTES # (AUTO) 1.1 K/uL (1.0-5.5); LYMPHOCYTES % (AUTO) 10.4 % (20.5-51.5); MEAN CORPUSCULAR HEMOGLOBIN 33 pg (27-31); MEAN CORPUSCULAR HGB CONC 34 % (32-36); MEAN CORPUSCULAR VOLUME 95 fL (79.0-98.0); MONOCYTES # (AUTO) 0.9 K/uL (0.0-1.0); MONOCYTES % (AUTO) 8.2 % (1.7-9.3); NEUTROPHILS # (AUTO) 8.9 K/uL (1.8-7.7); NEUTROPHILS % (AUTO) 80.7 % (40.0-70.0); PLATELET COUNT (AUTO) 127 K/uL (130-430); RED BLOOD CELL COUNT(AUTO) 3.98 MIL/uL (4.2-6.2); RED CELL DISTRIBUTION WIDTH 15.4 % (9.0-15.0)
[2022-11-18 07:56] LABS: ALBUMIN 1.9 g/dL (3.4-4.8); CALCIUM 7.7 mg/dL (8.4-11.0); CREATININE 0.85 mg/dL (0.55-1.30)
[2022-11-18 07:59] LABS: TOTAL BILIRUBIN 15.6 mg/dL (0.0-1.0)
[2022-11-18 08:00] VITALS: BP_SYST 149
[2022-11-18] MEDS: prednisoLONE 15 MG/5 ML UDC PO SCH (09:11)
[2022-11-18] MEDS: LACTULOSE 20 GM/30 ML UDC PO SCH (09:11)
[2022-11-18 11:49] VITALS: BP_SYST 128
[2022-11-18 14:37] VITALS: BP_SYST 128
--- NOTE | 2022-11-18 15:56 | NUR ---
PHYSICAL THERAPY CO-SIGN The Physical Therapy Progress Notes documented by Emery Wheel Molder have been reviewed. Reviewed/Co-Signed by: Bhaskar Nicolas Documentation Done by:TIM JIMENEZ Addendum: 11/18/22 at 1556 by Bhaskar Nicolas PT Amended: Links added.
[2022-11-18 17:28] VITALS: BP_SYST 137
--- NOTE | 2022-11-18 18:22 | NUR ---
PATIENT DC WITH WHEELCHAIR ASSISTED BY HIS . PATIENT DC PAPER SIGNED. PICC LINE TAKEN OUT. ASEPTIC TECHNIC. NOT BLEEDING OR REDNESS NOTED. PATIENT NOT COMPLAINING OF PAIN.
[2022-11-18] MEDS ORDERED: Lactulose PO (19:09)
--- NOTE | 2022-11-19 09:24 | NUR ---
OF PT CALLED TO INFORM THAT LACTULOSE 30 ML DAILY FOR 30 DAYS WAS NOT PROCESSED BY [facility]. NOTIFIED DR GOFF AND HE SAID THAT HE WILL CALL IT IN TO [facility] WHEN HE DOES HIS ROUNDS TODAY. WILL INFORM MRS CRAFT WHEN DR GOFF CALLS THE LACTULOSE IN [facility].
--- NOTE | 2022-11-19 12:44 | NUR ---
PRESCRIPTION FAXED TO [facility]. SPOKE TO SHIRIN, PHARMACIST WITH THE INSTRUCTION TO CALL THE ONCE PRESCRIPTION IS READY FOR PATIENT ASSESSMENT COORDINATOR.
== END 2022-11-18 18:15 | disposition home health service (06) | DRG 432 ==
LOC: SED 01:01 → SMU 01:55
PROVIDERS: ADMIT Internal Medicine; ATTEND Internal Medicine
DX: K70.10 Alcoholic hepatitis without ascites (principal); E43 Unspecified severe protein-calorie malnutrition; G93.41 Metabolic encephalopathy; D68.9 Coagulation defect, unspecified; F10.139 Alcohol abuse with withdrawal, unspecified; R65.10 Systemic inflammatory response syndrome (SIRS) of non-infectious origin without acute organ dysfunction; K70.9 Alcoholic liver disease, unspecified; E87.6 Hypokalemia; F41.9 Anxiety disorder, unspecified; F32.A Depression, unspecified; Y90.9 Presence of alcohol in blood, level not specified; E83.52 Hypercalcemia; E83.51 Hypocalcemia; E88.09 Other disorders of plasma-protein metabolism, not elsewhere classified; Z20.822 Contact with and (suspected) exposure to COVID-19; F10.129 Alcohol abuse with intoxication, unspecified; I10 Essential (primary) hypertension; E66.9 Obesity, unspecified; T38.0X5A Adverse effect of glucocorticoids and synthetic analogues, initial encounter; Y92.89 Other specified places as the place of occurrence of the external cause; Z68.31 Body mass index [BMI] 31.0-31.9, adult
CPT/HCPCS: 36415; 36600; 71045; 76700-TC; 80048; 80053; 82140; 82803-TC; 83605; 83735; 83880; 85007; 85025; 85027; 85610-TC; 85730-TC; 86803; 87040; 87081; 92610-GN; 93005; 97110-GP; 97112-GP; 97116-GP; 97163-GP; 97530-GP; 99291; J2060; J3411; J3475; J3480; J3490; J7030; J7040; J7050

== ENCOUNTER 2024-07-15 05:23 | Day surgery (SDC) | payer OTHER ==
[~2024-07-15] VITALS: Ht 185.4 cm; Wt 137.5 kg
[~2024-07-15 05:23] MED LIST changes: -AMLO5TAB4 PO; -ATEN50TA PO; +CHLO25CA11 PO; +FOLI-43 PO; -HCT25 PO; -LIB25 PO; +Lactulose PO; +MULT-1117 PO; +PRED20TA PO; +THIA100T70 PO
[2024-07-15] MEDS ORDERED: CELECOXIB 100 MG CAPSULE ONE (05:37)
[2024-07-15] MEDS ORDERED: ACETAMINOPHEN 500 MG TABLET ONE (05:37)
[2024-07-15] MEDS ORDERED: oxyCODONE HCL 10 MG TAB.ER.12H PO ONE (05:38)
[2024-07-15] MEDS ORDERED: GABAPENTIN 300 MG CAPSULE ONE (05:38)
[2024-07-15] MEDS ORDERED: SCOPOLAMINE HYDROBROMIDE 1 MG PATCH .72 H (TRANSDERM-SCOP) TD ONE (05:38)
[2024-07-15] MEDS: ACETAMINOPHEN 500 MG TABLET PO ONE (05:58)
[2024-07-15] MEDS: CELECOXIB 100 MG CAPSULE PO ONE (05:58)
[2024-07-15] MEDS: SCOPOLAMINE HYDROBROMIDE 1 MG PATCH .72 H (TRANSDERM-SCOP) TD ONE (05:58)
[2024-07-15] MEDS: GABAPENTIN 300 MG CAPSULE PO ONE (05:58)
[2024-07-15] MEDS ORDERED: CEFAZOLIN SOD 2 GM in D5W 50 ML IV ONE (07:00)
[2024-07-15] MEDS: oxyCODONE HCL 10 MG TAB.ER.12H PO ONE (07:24)
[2024-07-15] MEDS ORDERED: NS 1000 ML IV.SOLN IV ONE (07:25)
[2024-07-15] MEDS ORDERED: ONDANSETRON HCL 4 MG/2 ML VIAL ONE (07:25)
[2024-07-15] MEDS ORDERED: NS IRRIG SOLN 1000 ML IR ONE (07:25)
[2024-07-15] MEDS ORDERED: VANCOMYCIN HCL 1000 MG/VIAL IV ONE (07:25)
[2024-07-15] MEDS ORDERED: MIDAZOLAM HCL 2 MG/2 ML VIAL (VERSED) ONE (07:25)
[2024-07-15] MEDS ORDERED: LR 1,000 ML IV.SOLN IV ONE (07:25)
[2024-07-15] MEDS ORDERED: fentaNYL CITRATE/PF 100 MCG/2 ML AMP ONE (07:25)
[2024-07-15] MEDS ORDERED: BISACODYL 10 MG/SUPPOSITORY RC PRN (07:30)
[2024-07-15] MEDS ORDERED: TAMSULOSIN HCL 0.4 MG CAP PO SCH (07:30)
[2024-07-15] MEDS ORDERED: DIPHENHYDRAMINE HCL 25 MG CAPSULE PO PRN (07:30)
[2024-07-15] MEDS ORDERED: METOCLOPRAMIDE HCL 10 MG/2 ML VIAL IVP PRN ×2 (07:30→08:30)
[2024-07-15] MEDS ORDERED: LACTULOSE 20 GM/30 ML UDC PO PRN (07:30)
[2024-07-15] MEDS ORDERED: LR 1,000 ML IV SCH (08:30)
[2024-07-15] MEDS ORDERED: LABETALOL 100 MG/ 20ML VIAL IVP PRN (08:30)
[2024-07-15] MEDS ORDERED: HYDROmorphone 1 MG/ML INJ. CARTRIDGE IVP PRN ×4 (08:30→11:00)
[2024-07-15] MEDS ORDERED: ONDANSETRON HCL 4 MG/2 ML VIAL IVP PRN ×2 (08:30→11:45)
[2024-07-15] MEDS ORDERED: MEPERIDINE HCL/PF 25 MG/ML DISP.SYRIN IVP PRN (08:30)
[2024-07-15] MEDS ORDERED: hydrALAZINE HCL 20 MG/ML VIAL IVP PRN (08:30)
[2024-07-15] MEDS ORDERED: TAMSULOSIN HCL 0.4 MG CAP ONE ×2 (10:34→13:24)
[2024-07-15] MEDS: TAMSULOSIN HCL 0.4 MG CAP PO ONE (10:35)
[2024-07-15] MEDS ORDERED: traMADol HCL HCL 50 MG TABLET (ULTRAM) PO PRN (11:00)
[2024-07-15] MEDS ORDERED: LORATADINE 10 MG TABLET PO PRN (11:00)
[2024-07-15] MEDS ORDERED: oxyCODONE HCL 5 MG TABLET PO PRN ×2 (11:00)
[2024-07-15 11:02] VITALS: BP_SYST 160; PULSE 96; RESP 18; TEMP 98.2; O2SAT 96
[2024-07-15] MEDS ORDERED: ceFAZolin SODIUM 2 GM in D5W 50 ML IV SCH (11:15)
[2024-07-15] MEDS: HYDROmorphone 1 MG/ML INJ. CARTRIDGE IVP PRN (12:40)
[2024-07-15] MEDS ORDERED: HYDROmorphone 1 MG/ML INJ. CARTRIDGE ONE (12:42)
[2024-07-15] MEDS ORDERED: TAMSULOSIN HCL 0.4 MG CAP PO ONE (13:30)
[2024-07-15] MEDS ORDERED: ACETAMINOPHEN 500 MG TABLET PO SCH (14:00)
[2024-07-15] MEDS ORDERED: KETOROLAC TROMETHAMINE 10 MG TABLET (TORADOL) PO SCH (14:00)
[2024-07-15] MEDS ORDERED: SENNOSIDES/DOCUSATE SODIUM 1 TAB TABLET(SENOKOT-S) PO SCH (21:00)
[2024-07-16] MEDS ORDERED: TAMSULOSIN HCL 0.4 MG CAP PO SCH (09:00)
[2024-07-16] MEDS ORDERED: ASPIRIN 81 MG TAB.CHEW PO SCH (09:00)
[2024-07-16] MEDS ORDERED: CELECOXIB 200 MG CAPSULE PO SCH (11:00)
== END 2024-07-15 15:20 | disposition home or self-care (01) ==
LOC: SDS 05:23
PROVIDERS: ATTEND Student in an Organized Health Care Education/Training Program
DX: M17.12 Unilateral primary osteoarthritis, left knee (principal); M25.762 Osteophyte, left knee; M25.561 Pain in right knee; I10 Essential (primary) hypertension; E66.01 Morbid (severe) obesity due to excess calories; G47.33 Obstructive sleep apnea (adult) (pediatric); G89.18 Other acute postprocedural pain; Z68.41 Body mass index [BMI] 40.0-44.9, adult; Z79.899 Other long term (current) drug therapy
CPT/HCPCS: 87081; 27447; 97162; 64447; 73560; 97110; 97530; 97116; 88305; 88311; J0690; J0696; J2250; J2405; J3370; J3010; J1171; J7060 ×2; J7120; J7030; C1776 ×3; J3490